=== PATIENT | male | born 1945 | race Caucasian/White ===

== ENCOUNTER → 2016-09-03 | Outpatient (CLI) | payer OTHER ==
[~2016-09-03] VITALS: Ht 15.2 cm; Wt 108.9 kg
[~2016-09-03] MED LIST: APAP500 PO; ASPIR 8181 MG PO; COZAAR 25 MG TA25 M1 PO; IBUPROFEN 200200 M1 PO; MOBIC7.5 MG PO; PREDNISONE 10 M10 M1 PO; SLEEP AID50 MG PO; VALTREX 500 MG500 MG PO; VIAGRA50 MG PO
--- NOTE | ~2016-09-03 | HPC ---
[facility] [place] [address] PAIN MANAGEMENT CONSULTATION Name: WAQAS CAVANAUGH Room #: [facility]#: [id number] Admission: 09/03/16 Attend Phys: Ghanshyam Becerra DO Discharge: Date of : 43 Report #: [id number] THIS REPORT FOR: //name// CC: Wilbur Becerra DATE OF SERVICE: 09/03/2016 REFERRING PHYSICIAN: Wilbur Cardenas MD. CHIEF COMPLAINT: Right wrist pain, chronic right hand pain. HISTORY OF PRESENT ILLNESS: As you know, the patient is a very pleasant 71-year-old male, who has been suffering from chronic right hand and wrist pain that became intense in September of 2015. 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 He indicates that he is being followed by Orthopedics for his right hand pain and has undergone injections in regards to his right hand symptoms, specifically the proximal interphalangeal joint of the middle finger. He continues to experience right lateral wrist pain directly over the area of the articulation of the ulna with the triquetral bone and hamate. The patient indicates today his pain is steady, describes the pain as sharp, places his current pain score at 4/10, daily average of 4-6/10, worst pain has been is 8/10. The patient states that sleeping tends to exacerbate symptoms. He wakes up with significant amount of right lateral wrist pain, activity actually tends to improve pain over a short period of time. He has been referred to our clinic by his primary care physician for evaluation for right lateral wrist pain and right hand pain. PAST MEDICAL HISTORY: 1. Scarlet fever. 2. Hypertension. 3. Degenerative joint disease. 4. Osteoarthritis. 5. Erectile dysfunction. PAST SURGICAL HISTORY: 1. Tonsillectomy. 2. Repair of a deviated septum. 3. Left ring finger surgery. 4. Herniated lumbar spine surgery. 5. Knee arthroscopy. 6. Surgery on the right hand. SOCIAL HISTORY: The patient denies tobacco, IV, or illicit drug use. Admits to approximately 2 alcoholic beverages per day. 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 [facility] [address] [place] [address] PAIN MANAGEMENT CONSULTATION Name: WAQAS CAVANAUGH Room #: REG [facility].#: [id number] Admission: 09/03/16 Attend Phys: Ghanshyam Becerra DO Discharge: Date of : 43 Report #: [id number] He is working, not receiving workmen's compensation, nor is he trying to obtain disability benefits. He is not in litigation in regards to his pain. He is unaccompanied today. REVIEW OF SYSTEMS: Positive for wearing corrective eyewear, blurred and double vision, frequent diarrhea interspersed with constipation, rectal bleeding, frequent urination, nocturia, dysuria, hematuria, change in force of stream of urination, sexual difficulty, history of head injury, right hand pain, and headaches. All other review of systems negative per 12-point review of systems, other than those listed in history of present illness. Pain impact score 11/70 indicating mild interference with daily activities secondary to pain. ALLERGIES: NO KNOWN DRUG ALLERGIES. CURRENT MEDICATIONS: Valacyclovir 500 mg once a day, prednisone 10 mg once a day, Viagra 50 mg p.r.n., diphenhydramine 50 mg p.o. at bedtime, ibuprofen 200 mg once a day, acetaminophen 500 mg once a day, aspirin 81 mg per day, losartan 25 mg per day. IMAGING: X-ray of the right hand shows interphalangeal joint arthrosis of the right middle finger. PHYSICAL EXAMINATION: VITAL SIGNS: Blood pressure 138/71, pulse 64, respiratory rate 16, unlabored, the patient is 99% on room air, height 6 feet 6 inches tall, weight 240 pounds, BMI calculated 27.7. GENERAL: Well developed, well nourished, and well-hydrated. A 71-year-old male. He appears his stated age. He is placing current pain score at approximately 4/10. HEENT: Normocephalic and atraumatic. Pupils are equal, round, and reactive to light. Extraocular muscles are intact. Sclerae are nonicteric without injection. NEUROLOGIC: Cranial nerves 2-12 are grossly intact. LUNGS: Clear, no wheezes, rhonchi, or rales. CARDIOVASCULAR: Regular. No appreciable gallop or rub. ABDOMEN: Soft. Nontender and nondistended. Normoactive bowel sounds. EXTREMITIES: Show no clubbing, no cyanosis, no edema. MUSCULOSKELETAL: There is well healed surgical scar over the dorsum of the right hand. There is noted joint changes of the interphalangeal joint of the right second digit. There is reduced range of motion. There is palpatory tenderness noted over the lateral portion of the right wrist at the articulation of the ulna, triquetrum, and hamate bones. Abduction of the right wrist causes intensification of pain, adduction of the wrist causes some relief of symptoms. Range of motion of the wrist appears normal. [facility] [address] [place] [address] PAIN MANAGEMENT CONSULTATION Name: WAQAS CAVANAUGH Room #: REG [facility]#: [id number] Admission: 09/03/16 Attend Phys: Ghanshyam Becerra DO Discharge: Date of : 43 Report #: [id number] ASSESSMENT: 1. Right lateral wrist pain. 2. Arthrosis of the ulna/triquetral articulation. 3. Osteoarthritis. 4. Chronic intractable pain. PLAN: 1. The patient has been referred to our service for right lateral wrist pain. It appears that the pain is directly over the triquetrum, hamate, ulnar articulation. This appears to be arthritic in nature. Deep palpation of this area causes intensification of pain, specific movements of that area also cause intensification of pain with relief of symptoms with deviation of weight from the lateral side with medial movement of the wrist. The patient and I discussed treatment options for the pain generator from this articulation. These would include physical therapy, stretching exercises, splinting during the evening hours, as the patient has most of his pain, during sleep and waking in the morning. A cock-up splint or a splint that would cause a deviation of the hand towards the thumb away from this lateral portion of the wrist would be quite beneficial. These could be obtained at a local pharmacy. We discussed medication management with addition of a consistent nonsteroidal anti-inflammatory be taken on a daily basis for osteoarthritic pain, that usually takes about 7 days to reach efficacy and then you have to continue the medication. We also discussed intraarticular injections and surgical options. After reviewing the risks and benefits of all proposed treatment options, the patient chose conservative medication route and bracing route. 2. The patient will obtain a brace from the local pharmacy, which will cause a slight deviation of the right wrist towards the thumb, which will alleviate the pressure on the lateral articulation of the ulna, triquetrum, and hamate joints. This will decrease the patient's overall pain by reducing strain across the area. The patient can wear this at night, which should improve his pain in the morning hours. This will also allow the nonsteroidal anti-inflammatories to be added to provide better efficacy as the joint itself will not be articulating during the evening hours. 3. The patient will be started on meloxicam 7.5 mg 1 tab p.o. b.i.d. I have given the patient #60 tablets. I have placed 5 refills with this medication. If it is effective, he can continue the therapy. If he is finding no efficacy with the medication, but no side effects, we may adjust the medication to other medications that are similarly effective including Voltaren or Zipsor or possibly Celebrex. We will review efficacy of the nonsteroidal anti-inflammatory at our next visit. 4. The patient was given topical cream in the form of Pennsaid. Pennsaid could be applied to the local area up to 4 times a day. I have given him samples of this medication. If the meloxicam is ineffective, he should trial the samples of Pennsaid. If this is effective, we will write a full prescription of Pennsaid. I wish to trial this medication if the Meloxicam is ineffective [address] [address] PAIN MANAGEMENT CONSULTATION Name: WAQAS CAVANAUGH Room #: [facility]#: [id number] Admission: 09/03/16 Attend Phys: Ghanshyam Becerra DO Discharge: Date of : 43 Report #: [id number] before moving on to other oral medications, as topical creams in this case may provide more local improvement and reduce the potential GI issues. 5. We will see the patient back in followup visit in approximately 3-4 weeks. We will review efficacy of medication at that time and discuss other options for treatment if necessary. We will see him back at that visit. 6. We wish to thank you for the opportunity to see this patient in consultation. We will keep you apprised of his response to treatment as we address his right lateral wrist pain secondary to arthritis. Again, we wish to thank you for the opportunity to participate in his care. By: [id number] Ghanshyam Becerra DO /nt
[2016-09-03 09:32] VITALS: BP 138/71
== END ==
LOC: PAIN 06:51
DX: G89.29 Other chronic pain (principal); M19.90 Unspecified osteoarthritis, unspecified site; M25.531 Pain in right wrist; I10 Essential (primary) hypertension

== ENCOUNTER → 2017-09-29 | Outpatient (CLI) | payer OTHER ==
[~2017-09-29] VITALS: Ht 198.1 cm; Wt 106.0 kg
[~2017-09-29] MED LIST changes: +AMOX TR-K CLV1 EAC4 PO
--- NOTE | ~2017-09-29 | HPC ---
[facility] [place] [address] PAIN MANAGEMENT CONSULTATION Name: WAQAS CAVANAUGH Room #: REG [facility].#: [id number] Admission: 09/29/17 Attend Phys: Ghanshyam Becerra DO Discharge: Date of : 43 Report #: [id number] THIS REPORT FOR: //name// CC: Wilbur LURTH Physician staff DATE OF SERVICE: 09/29/2017 REFERRING PHYSICIAN: Wilbur Cardenas MD. CHIEF COMPLAINT: Bilateral wrist pain and left buttock and posterolateral thigh pain. 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 He indicates today pain level of 5/10, states pain is constant, sharp in sensation, exacerbated mainly with lying down. When discussing the left buttock pain with the posterolateral thigh discomfort, symptoms of the wrists are irritated by activities. He returns to discuss options for treatment. The patient indicates he did undergo a recent bursa injection with no benefit. This was done on the left side to address left hip pain, which by physical exam is not present. He returns to discuss options for treatment. ALLERGIES: CODEINE. CURRENT MEDICATIONS: Meloxicam, valacyclovir, prednisone, Viagra, diphenhydramine, acetaminophen, aspirin. SOCIAL HISTORY: The patient denies tobacco, IV or illicit drug use. Admits approximately 2 alcohol beverages per day. 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 IMAGING: No new imaging available. PQRS: The patient has known osteoarthritis. No rheumatoid arthritis. He is not a fall risk, has not fallen in the last 3 months. He is not on any blood thinners, not treated for hypertension. He is not on chronic opioids. His functional assessment pain impact score 23/70. Mild interference. PHYSICAL EXAMINATION: VITAL SIGNS: Blood pressure 150/84, pulse is 65, respiratory rate 16, unlabored. The patient is 98% on room air, height 6 feet 6 inches tall, weight [facility] [address] [place] [address] PAIN MANAGEMENT CONSULTATION Name: MAOWAQAS HOWELL Room #: REG [facility]#: [id number] Admission: 09/29/17 Attend Phys: Ghanshyam Becerra DO Discharge: Date of : 43 Report #: [id number] 233.6 pounds, BMI calculated 27.0. GENERAL: Well-developed, well-nourished, well-hydrated, 71-year-old male. He appears his stated age. He is placing current pain score at 5/10. HEENT: Normocephalic, atraumatic. Pupils equal, round, reactive to light. Extraocular muscles are intact. Sclerae nonicteric without injection. NEUROLOGIC: Cranial nerves 2-12 grossly intact. Speech is fluent. The patient deemed an excellent historian. LUNGS: Clear, no wheeze, rhonchi or rales. CARDIOVASCULAR: Regular. No appreciable gallop or rub. ABDOMEN: Soft, nontender. EXTREMITIES: Show no clubbing, no cyanosis, no edema. MUSCULOSKELETAL: The patient does have some palpatory tenderness over the lower lumbar spine, no spinous process tenderness. He shows negative seated straight leg raising on the left, positive supine straight leg raising on the left at approximately 60 degree angle. Muscle bulk and tone equal and symmetrical in lower extremities. Deep tendon reflexes are symmetrical at patella and Achilles. He does have palpatory tenderness over the bilateral wrists. There is minor crepitus noted with movement of the wrist in multiple planes. The pain is elicited with these maneuvers. There are no gross deformities or abnormalities concerning of underlying rheumatologic issues. ASSESSMENT: 1. Bilateral wrist osteoarthritis. 2. Chronic left hip pain. 3. Lumbar radiculopathy. 4. Lumbosacral spondylosis with radicular symptoms. 5. Chronic intractable pain. PLAN: 1. The patient has returned today in followup visit with 2 discrete pain generators. When discussing the patient's bilateral wrist pain, this appears to be due to osteoarthritis. We discussed with the patient treatment options for bilateral wrist pain due to osteoarthritic changes. These would include the following treatment options. We discussed physical therapy, stretching exercises as well as topical treatments such as hot wax therapies and slow stretching techniques. We discussed medication management with addition of a nonsteroidal anti-inflammatory taken on a consistent basis. We discussed surgical options with the patient including referral to orthopedic hand specialist. After reviewing risks and benefits of all proposed treatment options, the patient chose medical management root. 2. In regards to the patient's buttock and posterolateral thigh pain, this appears to be related more to lumbar radiculopathy. He does not have any intrinsic hip pathology. He underwent a bursa injection recently on the left [facility] [address] [place] [address] PAIN MANAGEMENT CONSULTATION Name: WAQAS CAVANAUGH Room #: REG [facility]#: [id number] Admission: 09/29/17 Attend Phys: Ghanshyam Becerra DO Discharge: Date of : 43 Report #: [id number] side, which provided no benefit in symptoms, though his symptoms do not correlate to a greater trochanteric bursa. Location, the symptoms are more mid buttock and deep in sensation, likely due to sciatic nerve irritation secondary to the findings of the lumbar spine, which shows significant arthritic changes at the lower lumbar levels. We discussed treatment options with the patient in regards to this issue. He wishes to remain conservative with his treatment and not look towards more aggressive treatment options such as suggested lumbar epidural injections and surgical options. The patient wishes to make some changes in medication management today. 3. The patient was provided a prescription of Zipsor 25 mg dose. He will take 1 tab p.o. t.i.d. with meals. We are trying the diclofenac molecule specifically to determine if his pain will be controlled with this medication. If pain is well controlled and no side effects of dyspepsia, worsening blood pressure, lower extremity edema, I recommend the patient utilize this medication on a consistent basis. We need to monitor the patient's kidney function if he is on the medication greater than 6 months. The patient was given samples of the Zipsor today 25 mg dose 3 times a day for at least 2 weeks to trial the medication. He will contact our clinic to advice of efficacy. 4. We wish to thank the referring physician for the opportunity to see the patient again in consultation. We are hopeful the changes in medication management will be beneficial. He will contact our clinic in regards to its efficacy and whether or not we wish to continue the therapy or have him return to discuss other options. <ELECTRONICALLY SIGNED> By: Ghanshyam Becerra DO 10/06/17 [id number] Ghanshyam Becerra DO /nt
[2017-09-29 09:12] VITALS: BP 150/84
== END ==
LOC: PAIN 06:35
DX: M47.27 Other spondylosis with radiculopathy, lumbosacral region (principal); M19.032 Primary osteoarthritis, left wrist; M19.031 Primary osteoarthritis, right wrist; G89.4 Chronic pain syndrome; M79.652 Pain in left thigh

== ENCOUNTER → 2018-05-04 | Outpatient (CLI) | payer OTHER ==
[~2018-05-04] VITALS: Ht 195.6 cm; Wt 109.6 kg
--- NOTE | ~2018-05-04 | HPC ---
[facility] [place] [address] PAIN MANAGEMENT CONSULTATION Name: MAOWAQAS HOWELL [facility] [id number] Admission: 05/04/18 Attend Phys: Ghanshyam Becerra DO Discharge: Date of : 43 Report #: [id number] THIS REPORT FOR: //name// CC: Wilbur Hernandez MD Physician staff DATE OF SERVICE: 05/04/2018 CHIEF COMPLAINT: Left shoulder pain, bilateral wrist pain, left buttock and posterolateral thigh pain. HISTORY OF PRESENT ILLNESS: As you know, the patient is a very pleasant 73-year-old male, returning in followup visit requesting refill of his meloxicam therapy. Apparently, he has run out of his medication and this has led to increasing bilateral wrist pain, left buttock and posterolateral thigh pain as well as recurrence of his left shoulder pain. He returns requesting refill on medication for which he receives about 60% improvement in overall pain. He is also requesting intra-articular shoulder injection to address left shoulder pain as he has had these injections in the past with good efficacy. We have not performed these injections on this patient, but he indicates good efficacy with prior injections. He has requested an intra-articular left shoulder injection in conjunction with medication management. He denies injury or trauma or any changes in medical history since our last visit. He is placing his baseline pain score at 9/10, exacerbated with using his left upper extremity. ALLERGIES: CODEINE. CURRENT MEDICATIONS: Valacyclovir, prednisone, Viagra, diphenhydramine, acetaminophen and aspirin. SOCIAL HISTORY: The patient denies tobacco, IV or illicit drug use. Admits to approximately 2 alcoholic beverages per day. 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 He is working, not receiving workmen's compensation, unaccompanied today. IMAGING: No new imaging available. PQRS: The patient has known arthritic changes of the bilateral shoulders, neck, low back, bilateral hips and hands. He does not carry a diagnosis of rheumatoid arthritis. He is not a fall risk, has not had a fall in the last 3 months. He is not on blood thinners. He has history of hypertension. He is not on any long-term opioid medications. He is placing pain impact at 35/70, moderate interference of daily activities secondary to pain. [address] [address] PAIN MANAGEMENT CONSULTATION Name: WAQAS CAVANAUGH Room #: REG [facility] Gi#: [id number] Admission: 05/04/18 Attend Phys: Ghanshyam Becerra DO Discharge: Date of : 43 Report #: [id number] PHYSICAL EXAMINATION: VITAL SIGNS: Blood pressure 152/88, pulse 74, respiratory rate 16 and unlabored, the patient is 99% on room air, height 6 feet 5 inches tall, weight 241.6 pounds, BMI calculated 28.6. GENERAL: Well-developed, well-nourished, well-hydrated 73-year-old male appearing stated age, placing current pain score 9/10. HEENT: Normocephalic, atraumatic. Pupils equal, round, reactive to light. EXTREMITIES: Show no clubbing, no cyanosis, no edema. MUSCULOSKELETAL: The patient has palpatory tenderness over the left shoulder itself. Pain is elicited both anterior and posterior. This is below the AC joint more related to the intra-articular joint itself. Active and passive range of motion of left shoulder is met with increasing pain. There is also noted active and passive range of motion pain of the lumbar spine with lumbar provocation testing including extension, rotation, lateral flexion. Ankle clonus negative. Babinski is negative. Muscle bulk and tone is symmetrical in lower extremities. ASSESSMENT: 1. Left shoulder pain. 2. Left shoulder osteoarthritis. 3. Chronic lumbar radiculopathy. 4. Lumbosacral spondylosis with radicular symptoms. 5. Chronic wrist osteoarthritis. 6. Chronic left hip pain. 7. Chronic intractable pain. PLAN: 1. The patient returns today in followup visit requesting a left intra-articular shoulder injection under fluoroscopic guidance. The patient has had intra-articular shoulder injections done with Orthopedics in the past with good efficacy. He has requested that we provide this injection today. He has noted good response with intra-articular shoulder injections up to 80% improvement. He denies new injury, new trauma or any changes in medical history since our last visit. He has been consented to undergo an intra-articular left shoulder injection today. He was advised of the risks which include, but are not necessarily limited to bleeding, bruising, infection, worsening pain, no relief of pain, also risk of temporary or permanent muscle weakness, temporary or permanent nerve damage, possible joint destruction and . The patient states understood and wished to proceed. 2. The patient was provided a refill prescription of his meloxicam. He does very well with this medication taking 7.5 mg twice a day. He has requested a 90-day prescription, total #180. I have provided this with 3 refills, which is 1 year of medication. The patient was advised to follow up with his PCP to monitor creatinine levels and kidney function to confirm the nonsteroidal anti-inflammatories are not causing any detrimental conditions. 3. We will see the patient back in followup visit on an as needed basis [address] [employer] [place] [address] PAIN MANAGEMENT CONSULTATION Name: WAQAS CAVANAUGH Room #: REG [facility].#: [id number] Admission: 05/04/18 Attend Phys: hGanshyam Becerra DO Discharge: Date of : 43 Report #: [id number] either medication management or further injection therapies. 4. The patient does indicate that he is going to be following up with Rheumatology. We have requested that the patient provide us information in regards to their findings and recent laboratory data drawn showing elevated sed rate, CRP and other positive concerning labs for possible rheumatologic issues. He states he will get this information to us as quickly as possible. PROCEDURE NOTE DESCRIPTION OF PROCEDURE: Left intra-articular shoulder injection under fluoroscopic guidance. After obtaining written consent, the patient was taken back to fluoroscopy suite, placed in a supine position. Image intensifier was then brought into position over the left shoulder and AP imaging was obtained. The area of the injection was then marked and then sterilely prepped with chlorhexidine. A 27-gauge 1-1/4 inch needle was then used to anesthetize skin and subcutaneous tissue with 1 mL of 1% lidocaine. A 25-gauge 2-inch needle was then advanced under fluoroscopic guidance to the proximal head of the humerus. Needle was advanced until reaching the osseous proximal humeral head. Needle was then retracted approximately 1 mm. After negative aspiration for heme, 3 mL of a solution containing 1 mL 40 mg per mL, 40 mg total triamcinolone, 2 mL of bupivacaine 0.5% injected slowly. Needle was retracted approximately half way, flushed with 1 mL of 1% lidocaine and removed. Sterile bandage placed over injection site. The patient tolerated procedure well, carefully escorted to recovery room in stable condition. No apparent complications. After meeting our discharge criteria, the patient discharged home. By: [id number] Ghanshyam Becerra DO /nt
[2018-05-04 10:09] VITALS: BP 152/88
--- NOTE | 2018-05-04 10:33 | NUR ---
Pain Clinic Assessment: 1. History of Osteoarthritis: Left Lower Extremity Left Upper Extremity Right Lower Extremity Right Upper Extremity History of Rheumatoid Arthritis: Not Applicable 2. Height: 6 ft. 5 in. 195.6 cm. Weight: 241.6 lb. oz. 109.589 kg. Patient's BMI: 28.6 3. Vital Signs: BP: 152/88 Pulse: 74 Resp: 16 Temp: 02 Sat: 99 ECG Mon: 4. Pain Intensity: 9 5. Fall Risk: Dizziness: N Needs help standing or walking: N Fallen in the last 3 months: N Fall risk comments: 6. Patient on Blood Thinner: None 7. History of Hypertension: Y 8. Opioid Therapy greater than 6 weeks: N Opiate Contract Signed: 9. Risk Assessment Tool Provided: 10. Functional Assessment Tool: 11. Recreational Drug Use: Never Drug Type: Tobacco Use: Former Smoker Tobacco Type: Amount or Packs/day: How Many Years: Alcohol Use: Yes Frequency: Quant:
== END | disposition home or self-care (01) ==
LOC: PAIN 07:25
DX: M19.012 Primary osteoarthritis, left shoulder (principal); M47.27 Other spondylosis with radiculopathy, lumbosacral region; M19.032 Primary osteoarthritis, left wrist; M25.552 Pain in left hip; G89.29 Other chronic pain; I10 Essential (primary) hypertension; Z88.8 Allergy status to other drugs, medicaments and biological substances; Z79.899 Other long term (current) drug therapy; Z79.82 Long term (current) use of aspirin; Z87.891 Personal history of nicotine dependence

== ENCOUNTER → 2020-03-06 | Outpatient (CLI) | payer OTHER ==
[~2020-03-06] VITALS: Ht 195.6 cm; Wt 113.5 kg
[~2020-03-06] MED LIST changes: +MUPIROCIN1 GM TOP
[2020-03-06 08:43] VITALS: BP 140/89
--- NOTE | 2020-03-06 09:09 | NUR ---
Pain Clinic Assessment: 1. History of Osteoarthritis: Left Lower Extremity Left Upper Extremity Right Lower Extremity Right Upper Extremity History of Rheumatoid Arthritis: Not Applicable 2. Height: 6 ft. 5 in. 195.6 cm. Weight: 250.2 lb. oz. 113.490 kg. Patient's BMI: 29.7 3. Vital Signs: BP: 140/89 Pulse: 64 Resp: 16 Temp: 02 Sat: 98 ECG Mon: 4. Pain Intensity: 10+IF WEARING SHOES 5. Fall Risk: Dizziness: N Needs help standing or walking: N Fallen in the last 3 months: N Fall risk comments: 6. Patient on Blood Thinner: None 7. History of Hypertension: Y 8. Opioid Therapy greater than 6 weeks: N Opiate Contract Signed: 9. Risk Assessment Tool Provided: 0-LOW 10. Functional Assessment Tool: 44 11. Recreational Drug Use: Never Drug Type: Tobacco Use: Former Smoker Tobacco Type: Amount or Packs/day: How Many Years: Alcohol Use: Yes Frequency: Daily Quant: 2-3
--- NOTE | 2020-03-07 12:28 | HPC ---
[facility] [place] [address] [address] [place] [address] PAIN MANAGEMENT CONSULTATION Name: WAQAS CAVANAUGH Room #: REG Rachel Blandon.#: [id number] Admission: 03/06/20 Attend Phys: Ghanshyam Becerra DO Discharge: Date of : 43 Report #: [id number] THIS REPORT FOR: cc: LUIS E CASE MD Physician not on staff Ghanshyam Becerra DO ~ DATE OF SERVICE: 03/06/2020 REFERRING PHYSICIAN: Wilbur Cardenas MD CHIEF COMPLAINT: Right ankle pain, status post protracted wound. HISTORY OF PRESENT ILLNESS: As you know, the patient is a very pleasant 75-year-old male who has returned today in followup visit with right ankle pain. 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 He is now seeing wound care, which has improved his wound, but left him with pain and paresthesias in and around the wound site itself. It does not appear to be complex regional pain syndrome based on the reports. It does appear to be a peripheral nerve issue surrounding this area. The patient indicates that the pressure across the area exacerbated symptoms. He can barely wear socks and cannot wear shoes. He cannot lay in bed due to blankets rubbing against it. He has tried protecting it with compresses and this also exacerbated symptoms. He has been referred to our service to discuss treatment for this constant right calcaneal pain exacerbated with touch. ALLERGIES: CODEINE. CURRENT MEDICATIONS: Mupirocin, valacyclovir, Viagra, acetaminophen, aspirin. SOCIAL HISTORY: The patient denies tobacco, IV or illicit drug use. Admits to 2 alcohol beverages per day. He is employed. 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 He is working, not receiving workmen's compensation, unaccompanied today. IMAGING: No new imaging available. PQRS: The patient has known arthritic changes of the lumbar spine, bilateral knees. No rheumatoid arthritis. He is not a fall risk, has not had a fall in the last 3 months. He is not on blood thinners. He is treated for hypertension. He is not on any chronic opioids. Pain impact is rated today at 44/70, moderate to severe interference of daily activities secondary to pain. PHYSICAL EXAMINATION: VITAL SIGNS: Blood pressure 140/89, pulse 64, respiratory rate 16 and unlabored. The patient is 98% on room air, height 6 feet 5 inches tall, weight 250.2 pounds, BMI calculated 29.7. [facility] [address] [place] [address] PAIN MANAGEMENT CONSULTATION Name: WAQAS CAVANAUGH Room #: REG [facility]#: [id number] Admission: 03/06/20 Attend Phys: Ghanshyam Becerra DO Discharge: Date of : 43 Report #: [id number] GENERAL: Well-developed, well-nourished, well-hydrated 75-year-old male appearing stated age. He is placing pain score today up to 10/10 depending on pressure on the area. HEENT: Normocephalic, atraumatic. Pupils equal, round and reactive. Speech fluent. The patient deemed an excellent historian. LUNGS: Clear, no wheeze, rhonchi or rales. CARDIOVASCULAR: Regular. No appreciable gallop, no rub. ABDOMEN: Soft, nontender, nondistended. EXTREMITIES: Show no clubbing, no cyanosis. No appreciable edema. MUSCULOSKELETAL: The wound does appear to be healed on the right calcaneus. There is some erythema around the wound site consistent with healing. There is noted scar tissue formation. It is very tender to palpation around the preembry of the wound itself. ASSESSMENT: 1. Peripheral neuropathy. 2. 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 3. Chronic wound pain. PLAN: 1. The patient has returned today in followup visit per the request of his primary care physician to discuss treatment options for the right calcaneal pain, status post wound with a long-term infection. It does appear the patient is suffering from peripheral neuropathic issues secondary to the wound itself. The patient has been seeing wound care and other physicians in regards to this issue. He has had testing done, which shows no peripheral vascular issues concerning of peripheral neuropathy in a more generalized fashion. He is experiencing pain directly over the site, which appears to be related to this chronic infection. We would recommend conservative treatment initially. The wound does appear to be healing well and this I think is a good sign. I would recommend the following changes in treatment today. 2. We have recommended the use of RectiCare 5% topical lidocaine to be applied up to 3 times a day. This will improve his symptoms. We recommend topical agents as his area of discomfort is fairly small, about the size of a quarter over the right calcaneus and systemic medications would likely lead to fairly significant side effects. We recommend utilizing this RectiCare 3 times a day. He will obtain the medication from [id number] as this is cheaper then prescription currently. We recommend at least a 2 week trial of this 3 times a day to determine if his symptoms can be controlled. I do feel that his symptoms will see good analgesic benefit with this treatment given the area of discomfort being as small as it and the thickness of the skin is such that the penetration of this medication should be sufficient. 3. We plan to see the patient back in followup visit in 2 weeks for further evaluation. At that time, discuss other treatment options if necessary. The patient is agreeable with this plan. 4. We wish to thank Dr. Cardenas for the opportunity to see the patient again in [address] [place] [address] PAIN MANAGEMENT CONSULTATION Name: CAVANAUGHWAQAS HOWELL Room #: REG CL Gi#: [id number] Admission: 03/06/20 Attend Phys: Ghanshyam Becerra DO Discharge: Date of : 43 Report #: [id number] consultation. We will keep you apprised of response to treatment as we address this right calcaneal pain, status post chronic infection. Again, we wish to thank you for the opportunity to see the patient in consultation. <ELECTRONICALLY SIGNED> By: Ghanshyam Becerra DO 03/07/20 1228 [id number] Ghanshyam Becerra DO /nt
== END ==
LOC: PAIN 06:53
PROVIDERS: ATTEND Anesthesiology Pain Medicine
DX: G62.9 Polyneuropathy, unspecified (principal); G89.29 Other chronic pain; Z79.899 Other long term (current) drug therapy